=== PATIENT | female | born 1990 | race Caucasian/White ===

== ENCOUNTER 2019-09-13 12:45 | Outpatient (CLI) | payer SELFPAY ==
--- NOTE | 2019-09-13 12:56 | XR_ITS ---
WS: [id number] INDICATION: Dental caries and jaw pain TECHNIQUE: 4 views of the mandible FINDINGS: Soft tissue edema with ulceration overlying the right mandible. Numerous dental carries wit h periapical lucency. Evidence of erosive bone changes involving the right mandible deep to the ulceration suspicious for o steomyelitis. This is in the right mandibular parasymphyseal region. Area of bony lucency measures 1. 6 x 1.5 CM. Recommend further evaluation with face CT. XR/XR mandible min 4V [id number] IMPRESSION: Evidence of erosive bone changes involving the right mandible deep to the ulcer ation suspicious for osteomyelitis. This is in the right mandibular parasymphys eal region. Area of bony lucency measures 1.6 x 1.5 CM. Recommend further evalu ation with face CT. .
== END 2019-09-13 12:46 | disposition home or self-care (01) ==
LOC: RADWPI 12:50
PROVIDERS: Family Provider Family Medicine; PCP Family Medicine; Visit Provider Family Medicine
DX: K02.9 Dental caries, unspecified (principal); R68.84 Jaw pain
CPT/HCPCS: 70110